=== PATIENT | male | born 1975 | race Caucasian/White ===

== ENCOUNTER 2022-03-26 13:42 | Emergency (ER) | payer MEDICAID ==
[~2022-03-26] VITALS: Ht 185.4 cm; Wt 89.0 kg
[2022-03-26] MEDS ORDERED: DIPHENHYDRAMINE 50MG/ML VIAL IV ONE (20:15)
[2022-03-26] MEDS ORDERED: METOCLOPRAMIDE HCL 10MG/2ML VIAL IV ONE (20:15)
[2022-03-26] MEDS ORDERED: KETOROLAC 15MG/ML VIAL IV ONE (20:15)
[2022-03-26] MEDS ORDERED: SODIUM CHLORIDE 0.9% 1,000 ML IV ONE (20:15)
[2022-03-26 20:45] LABS: BASOPHILS % 0.3 % (0.0-2.0); HEMATOCRIT. 43.6 % (42.0-52.0); HEMOGLOBIN. 14.9 g/dL (14.0-18.0); LYMPHOCYTES % 35.9 % (20.0-50.0); MEAN CORPUSCULAR HEMOGLOBIN 31.7 pg (28.0-32.0); MEAN CORPUSCULAR VOLUME 92.6 fL (80.0-94.0); MEAN PLATELET VOLUME 7.6 fl (7.4-10.4); MONOCYTES % 7.8 % (2.0-8.0); PLATELET 241 x1000/uL (130-400); RED BLOOD CELL COUNT 4.71 mill/uL (4.7-6.1); RED CELL DISTRIBUTION WIDTH 12.3 % (11.6-14.6)
[2022-03-26 20:55] LABS: CHLORIDE 103 mEq/L (98-107)
[2022-03-26 21:30] VITALS: BP 115/69
== END 2022-03-26 22:13 | disposition home or self-care (01) ==
LOC: ER 13:42
DX: G43.909 Migraine, unspecified, not intractable, without status migrainosus (principal); Z76.5 Malingerer [conscious simulation]; M19.90 Unspecified osteoarthritis, unspecified site; I49.8 Other specified cardiac arrhythmias
CPT/HCPCS: 36415; 80053; 85025; 93005; 99284; J7030; J1200; J1885; J2765